=== PATIENT | female | born 1965 | race Caucasian/White ===

== ENCOUNTER 2021-06-17 07:56 | Outpatient (CLI) | payer OTHER, SELFPAY ==
[2021-06-17 19:25] LABS: Basophils Percent Auto 0.6 % (0.2-1.2); Eosinophils Absolute Auto 0.1 K/mm3 (0-0.3); Eosinophils Percent Auto 2.4 % (0-4.4); Hematocrit 44.1 % (37.0-47.0); Hemoglobin 14.1 g/dL (12.0-15.0); Lymphocytes Absolute Auto 1.33 K/mm3 (0.9-3.2); Lymphocytes Percent Auto 28.4 % (18.3-44.2); Mean Corpuscular Hemoglobin 31.4 pg (26-34); Mean Corpuscular Volume 98.2 fl (80-100); Mean Platelet Volume 10.5 fl (7.4-10.4); Monocytes Absolute Auto 0.6 K/mm3 (0.1-0.6); Monocytes Percent Auto 12.2 % (2.6-8.5); Neutrophils Absolute Auto 2.6 K/mm3 (1.3-6.7); Neutrophils Percent Auto 56.4 % (45.5-73.1); Platelet Count Result 267 k/mm3 (150-375); Red Blood Count 4.49 M/mm3 (4.2-5.4); Red Cell Distribution Width 12.2 % (11.5-14.5); White Blood Count 4.7 K/mm3 (4.5-10.0)
[2021-06-17 19:37] LABS: Add Urine Microscopic? YES; Appearance Urine Clear (Clear); Bilirubin Urine Negative (Negative); Blood Urine Negative (Negative); Color Urine Amber (Yellow); Glucose Urine UA Negative (Negative); Ketones Urine Negative (Negative); Leukocyte Esterase Ur 2+ LEU/UL (NEGATIVE); Mucus Urine Few /lpf; Nitrate Urine Positive (Negative); Protein Urine Negative (Negative); RBC Urine 0-2 /hpf (0-2); Specific Grav Ur 1.011 (1.001-1.035); Squamous Epithelial Cell Urine Rare /hpf (Few); WBC Urine 31-50 /hpf (0-3)
[2021-06-17 21:07] LABS: Alanine Aminotransferase 19 U/L (4-35); Alkaline Phosphatase 73 U/L (38-126); Anion Gap 8 mmol/L (8-16); Aspartate Amino Transferase 28 U/L (14-36); Bilirubin,Total 0.9 mg/dL (0.2-1.3); Blood Urea Nitrogen 16 mg/dL (7-17); Carbon Dioxide 29 mmol/L (22-30); Chloride 101 mmol/L (98-107); Cholesterol 189 mg/dL (0-200); Estimated Glomerular Filt Rate > 60; Glucose 94 mg/dL (65-110); HDL Direct 90 mg/dL; Potassium 4.3 mmol/L (3.4-5.0); Sodium 138 mmol/L (137-145); Triglycerides 53 mg/dL (<150)
[2021-06-17 21:18] LABS: LDL Cholesterol Direct 82 mg/dL
== END 2021-06-17 07:57 | disposition home or self-care (01) ==
LOC: ANHBWCLAB 07:59
PROVIDERS: PCP Family Medicine; Visit Provider Family Medicine
DX: N39.0 Urinary tract infection, site not specified (principal); M85.89 Other specified disorders of bone density and structure, multiple sites; Z00.00 Encounter for general adult medical examination without abnormal findings
CPT/HCPCS: 36415; 80053; 80061; 81001; 85025; 87077; 87086; 87186

== ENCOUNTER 2021-12-30 16:56 | Outpatient (CLI) | payer OTHER, SELFPAY ==
--- NOTE | ~2021-12-30 | DEXA_ITS ---
Bone Density Report Name: ANSLEY LI Age: 56 Sex: Female Ethnicity: White Date of : 1965 Indication: postmenopausal; screening for osteoporosis; Referring Provider: JOHN FERNANDO Study: Bone densitometry was performed. Exam Date: December 30, 2021 Accession number: [id number] Bone Density: Region BMD T-score Z-score Classification AP Spine(L1-L4) 0.739 -2.8 -1.5 Osteoporosis Femoral Neck (Left) 0.568 -2.5 -1.3 Osteoporosis Total Hip (Left) 0.680 -2.1 -1.3 Osteopenia Femoral Neck (Right) 0.597 -2.3 -1.1 Osteopenia Total Hip (Right) 0.722 -1.8 -1.0 Osteopenia Total Hip Mean 0.701 -2.0 -1.2 Osteopenia World Health Organization criteria for BMD impression classify patients as: Normal (T-score at or above -1.0), Osteopenia (T-score between -1.0 and -2.5), or Osteoporosis (T-score at or below -2.5). 10-year Fracture Risk: FRAX not reported because: Some T-score for Spine Total or Hip Total or Femoral Neck at or below -2.5 Clinical Information Provided by Patient: Patient maximum height was 62 Menopause Age: 40 No regular weight bearing exercise Drinks caffeinated beverages Onset of menses at age 10 Number of children 1 Impression: The patient has osteoporosis, based on the Total Spine T-score. Discussion: INCREASED RISK OF FRACTURE. BONE DENSITY IS UNDESIRABLY LOW AT ONE OR MORE SKELETAL SITES, CONSISTENT WITH POSTMENOPAUSAL OSTEOPOROSIS. This patient's lowest T-score meets the World Health Organization's (WHO) criteria for osteoporosis at one or more sites (T-score -2.5 or below). In untreated patients, the risk of osteoporotic fracture increases approximately two-fold for each 1.0 SD decrease in T-score. Low bone density is not the only risk factor for fracture; also consider factors such as patient's age, frailty or poor health, risk of falling, risk of injury, previous osteoporotic fracture, family history of osteoporosis, cigarette smoking, low body weight, etc. Not everyone with low bone mineral density has osteoporosis; osteomalacia and other metabolic bone disorders should also be considered. Patients who have osteoporosis should be evaluated for specific diseases and conditions (secondary causes) that may cause or contribute to bone loss. The [place] [employer] Endocrinologists (AACE) and National Osteoporosis Foundation (NOF) recommend pharmacologic intervention for all postmenopausal women whose T-score is in this range. The patient should follow a healthful lifestyle (good nutrition with adequate calcium and vitamin D, and appropriate weight-bearing exercise). Follow-Up: Consider a repeat BMD and Vertebral Fracture Assessment (VFA) exam in 2 years or sooner if medically necessary, to reassess this patient's status. Reported by: GÓMEZ on 12/30/2021 5:27:00
== END 2021-12-30 16:57 | disposition home or self-care (01) ==
PROVIDERS: PCP Family Medicine; Visit Provider Family Medicine
DX: Z78.0 Asymptomatic menopausal state (principal); M81.0 Age-related osteoporosis without current pathological fracture; M85.852 Other specified disorders of bone density and structure, left thigh; M85.851 Other specified disorders of bone density and structure, right thigh
CPT/HCPCS: 77080

== ENCOUNTER 2025-03-31 11:56 | Outpatient (CLI) | payer OTHER, SELFPAY ==
--- NOTE | ~2025-03-31 | XR_ITS ---
XR lumbar spine 2-3V 03/31/2025 12:08 Indication: Low back pain. No known injury. Procedure: 3 views lumbar spine Comparison: No prior studies for comparison. Findings: There is disc narrowing at L4-5 with grade 1 spondylolisthesis secondary to facet hypertrop hy. There is disc narrowing at L5-S1. No acute fracture or traumatic malalignment. Mild dextrocurvatu re of the lumbar spine. Sacral foramen are symmetric. Impression: 1: Moderate lumbar spondylosis with degenerative grade 1 spondylolisthesis at L4-5. Reviewed, dictated and finalized at location A. Impression: 1: Moderate lumbar spondylosis with degenerative grade 1 spondylolisthesis at L 4-5.
--- NOTE | ~2025-03-31 | XR_ITS ---
XR hip LT min 2V 03/31/2025 12:08 Indication: Left hip pain Procedure: 2 views left hip Comparison: No prior studies for comparison. Findings: No fracture, subluxation or dislocation. No significant soft tissue abnormality. No foreign bodies. Impression: 1: No significant bone or joint abnormality. Reviewed, dictated and finalized at location B. Impression: 1: No significant bone or joint abnormality.
--- OUTSIDE RECORDS SUMMARY | 2025-03-31 12:03 | XMS_ITS | Continuity of Care Document ---
Author Organization [facility] Address [address] [place] [address] [address] [place] [address] Phone Care Team Providers Care Paint Mixer Hand Name Role Phone Ej Orr MD Unavailable Unavailable Advance Directives Directive Yes / No Effective Date File Name No Information Encounters Encounter Description Practice Location Reason(s) For Visit Diagnoses Date Provider Providers Copied on Encounter [facility], [address] [place], [place], [id number], [place] tel:[phone] [place] Professional No Information [address] [facility] [place], [place], [place], [id number], [place]. tel:[phone] Family History Family Member Type Diagnosis Age At Onset No Information Payers Payer name Insurance type Covered alliance party ID Authoriza tion(s) [facility] Commercial CI [id number] Social History Type Description Quantity Date Captured Comments Sex Female Smoking Status No Information Chief Complaint And Reason For Visit No Information Reason For Referral Reason For Referral No Information History Of Present Illness Encounter Date Complaint History Of Prese nt Illness No Information Functional Status Date Functional Assessmen t No Information Instructions Date Instruction Additional Infor mation No Information Assessments Type Assessment Date No Information Patient Care Teams Name Effective Dates (start - stop) Status Members No Information
== END 2025-03-31 11:57 | disposition home or self-care (01) ==
LOC: ANHBWCIMG 11:57
PROVIDERS: PCP Nurse Practitioner Adult Health; Visit Provider Nurse Practitioner Adult Health
DX: M79.605 Pain in left leg (principal)
CPT/HCPCS: 72100; 73502

== ENCOUNTER 2025-06-16 11:30 | Outpatient (CLI) | payer OTHER, SELFPAY ==
--- OUTSIDE RECORDS SUMMARY | 2025-06-16 12:55 | XMS_ITS | Clinical Summary ---
Author Organization [facility] Address [address] [place] [address] Care Team Providers Care Weekend Anchor Name Role Phone Jonny Summers MD, Maximino Little Primary Care Provi jessie Unavailable Source Comments [facility],non-owned Affiliates and Associated Physician Practices is amultiple site organization consisting of ambulatory clinics and hospital sitesin [place], [place], [place] and [place]. This disclosure is being madepursuant to the Care Everywhere program and may not contain all information available regarding this patient. Last updated 18.[facility] Allergies Active Allergy Reactions Criticality Noted Date Comments Doxycycline Nausea and/or Vomiting 08/16/2019 Medications * Be aware that medications may not be up to date on this document. Alwaysverify current medications with the patient. Probiotic Product (PROBIOTIC DAILY PO) Active benzonatate (TESSALON) 200 MG capsule Take 1 capsule by mouth 3 times daily as needed for Cough 30 capsule 08/14/2019 Active ondansetron (ZOFRAN) 4 MG tablet Take 1 tablet by mouth every 8 hours as needed for Nausea/Vomit ing 15 tablet 08/16/2019 Active Active Problems No known active problems Social History Tobacco Use Types Packs/Day Years Used Date Smoking Tobacco: Never Smokeless Tobacco: Never Tobacco Cessation:Counseling Given: Yes Comments No Sex and Gender Information Value Date Recorded Sex Assigned at Not on file Legal Sex Female 11:07 AM CDT Gender Identity Not on file Sexual Orientation Not on file Last Filed Vital Signs Vital Sign Reading Time Taken Comments Blood Pressure 138/80 08/14/2019 12:33 PM MANAGEMENT CONSULTING Pulse 72 08/14/2019 12:33 PM MANAGEMENT CONSULTING Temperature 36.5 C (97.7 F) 08/14/2019 12:33 PM MANAGEMENT CONSULTING Respiratory Rate 18 08/14/2019 12:33 PM MANAGEMENT CONSULTING Oxygen Saturation 98% 08/14/2019 12:33 PM MANAGEMENT CONSULTING Inhaled Oxygen Concentration - - Weight 50.8 kg (112 lb) 08/14/2019 12:33 PM MANAGEMENT CONSULTING Height 157.5 cm (5' 2) 08/14/2019 12:33 PM MANAGEMENT CONSULTING Body Mass Index 20.49 08/14/2019 12:33 PM MANAGEMENT CONSULTING Plan of Treatment Health Maintenance Due Date Last Done Comments COLOGUARD (AGES 45-75) - COL ON CA SCREENING 1965 COLON MONITORING 1965 COLONOSCOPY - COLON CA SCREENING 1965 CT COLONOGRAPHY - COLON CA SCREENING 1965 Colorectal Cancer Screening 1965 FIT - COLON CA SCREENING 1965 FLEX SIG - COLON CA SCREENING 1965 LIPID TESTING 1965 MAMMOGRAM 1965 HIV SCREENING 1978 HEPATITIS C SCREENING 10/18/1981 DTAP/TDAP/TD VACCINES (1 - Tdap) 1982 PAP with HPV 1993 PNEUMOCOCCAL VACCINE 50+ (1 of 1 - PCV) 2013 ZOSTER VACCINE (1 of 2) 2013 DEPRESSION SCREENING 09/04/2024 COVID-19 VACCINE (1 - 2023-2 5 season) 2025 INFLUENZA VACCINE (#1) 2025 Respiratory Syncytial Virus (RSV) Vaccine Pt: or over 60 yrs (1 - 1-dose 75+ series) 2038 HEPATITIS B VACCINE Aged Out No longe r eligible based on patient's age to complete this topic HIB VACCINE Aged Out No longer eligi ble based on patient's age to complete this topic HPV VACCINE Aged Out No longer eligi ble based on patient's age to complete this topic MENINGOCOCCAL (Group B) VACC INE SHARED DECISION-MAKING Aged Out No longer eligibl e based on patient's age to complete this topic MENINGOCOCCAL GROUPS A/C/Y/W VACCINE Aged Out No longer eligible b ased on patient's age to complete this topic Insurance [facility] Care Teams Weekend Anchor Relationship Specialty Start Date End Date Maximino Fuller Jr., MD PCP - General Internal Medicine 02/18/17
--- OUTSIDE RECORDS SUMMARY | 2025-06-16 12:55 | XMS_ITS | Clinical Summary ---
Author Organization [facility] Address [address] [place] [address] Phone Care Team Providers Care Produce Manager Name Role Phone Homer Bai MD Primary Care Provider [phone] Allergies Active Allergy Reactions Criticality Noted Date Comments Penicillins Rash 02/18/2017 Medications ofloxacin (OCUFLOX) 0.3 % SolutionIndicat ions:Chronic reactive otitis externa of left ear 4 drops in the left ear twice daily for one week 10 mL 9 Active Additional Information Patient not taking.Reported on 12/29/2023 Active Problems No known active problems Family History Medical History Relation Name Comments Cancer Father Prostate and no [place]odgins lymphoma Heart Disease Father Hypertension Father Hypertension Mother Relation Name Status Comments Father Alive Mother Alive Social History Tobacco Use Types Packs/Day Years Used Date Smoking Tobacco: Never Smokeless Tobacco: Never Tobacco Cessation:Counseling Given: Not Answered Alcohol Use Standard Drinks/Week Comments No 0 (1 standard drink = 0.6 oz pur e alcohol) Comments No Sex and Gender Information Value Date Recorded Sex Assigned at Not on file Legal Sex Female 11:25 PM CDT Gender Identity Not on file Sexual Orientation Not on file Last Filed Vital Signs Vital Sign Reading Time Taken Comments Blood Pressure 152/95 01/08/2024 10:06 AM CDT Pulse 67 01/08/2024 10:06 AM CDT Temperature 36.3 C (97.3 F) 01/08/2024 10:06 AM CDT Respiratory Rate 16 01/08/2024 10:06 AM CDT Oxygen Saturation 99% 01/08/2024 10:06 AM CDT Inhaled Oxygen Concentration - - Weight 63.5 kg (140 lb) 12/29/2023 3:08 PM CDT Height 157.5 cm (5' 2) 12/29/2023 3:08 PM CDT Body Mass Index 25.61 12/29/2023 3:08 PM CDT Plan of Treatment Health Maintenance Due Date Last Done Comments Hepatitis C Virus (HCV) Screening 1965 TdaP Immunization 1965 Pap Smear 1984 Cervical Cancer Screening (CCS) 1993 HPV/Cotest 1993 Cologuard 2008 Colonoscopy 2008 Colorectal Cancer Screening 2008 Immunochemical Fecal Occult Blood 2008 Pneumococcal Immunization (50+ years) (1 of 1 - PCV) 2013 Zoster Immunization (1 of 2) 2013 Mammogram 04/28/2024 04/28/2023, 02/02, 11/15/2019, Additional history exists Influenza Immunization (#1) 2025 08/13/2019 SARS-COV-2 Immunization ( season) 2025 08/12/2021, 12/24/2020, 11/30/2020 Respiratory Syncytial Virus (RSV) Immunization (Adult) (1 - 1-dose 75+ series) 2038 Hepatitis B Immunization Aged Out No longer eligible based on patient's age to complete this topic Human Papillomavirus (HPV) Immunization Aged Out No longer eligible based on patient's age to complete this topic Meningococcal Immunization (ACWY) Aged Out No longer eligible based on patient's age to complete this topic Rotavirus Immunization Aged Out No lo nger eligible based on patient's age to complete this topic Medical Devices Implanted Type Area Hot Wort Settler Device Identifier Shelf Expiration Date Model / Serial / Lot Right Lens Implanted:Qty: 1 on 01/08/2024 by Daisha Celaya MD PhD at [facility] Right: Eye [employer] 03/16/2026 [id number] / [id number] / [id number] Procedures Procedure Name Priority Date/Time Associated Diagnosis Comments VENKATA SCREENING BILATERAL DIGI RUTHIE W CAD Routine 12/09/2015 from Last 3 Months or Most Recently Relevant to Health Maintenance Results * VENKATA SCREENING BILATERAL DIGITAL W CAD (12/09/2015) Anatomical Region Laterality Modality breast Bilateral Other Manjinder Chaves MD IMG MAMMO ORDERABLES Final Result from Last 3 Months or Most Recently Relevant to Health Maintenance [place] [address] [place] [id number] * Guarantor: LITA RODRIGUEZ Account Type Relation to Patient Date of Phone Billing Address Personal/Family Self Care Teams Produce Manager Relationship Specialty Start Date End Date Homer aBi MD PCP - General Family Medicine 01/01/24
--- OUTSIDE RECORDS SUMMARY | 2025-06-16 12:55 | XMS_ITS | Clinical Summary ---
Author Organization [address] Address [address] [place] [address] Care Team Providers Care Coin Machine Collector Supervisor Name Role Phone Homer Bai MD Primary Care Provider [phone] Allergies Active Allergy Reactions Criticality Noted Date Comments Penicillins Rash Medium 02/18/2017 Penicillins Hives Medium 04/19/2019 Medications multivitamin capsule Take 1 capsule by mouth daily Active ibandronate (BONIVA) 150 mg tablet Take 1 tablet (150 mg total) by mouth every 30 (thirty) days Take in AM with glass of water prior to food, don't lie down for 30 minutes. 1 tablet 11 3 Active Additional Information Patient not taking.Reported on 03/13/2025 nitrofurantoin monohydrate (MACROBID) 100 mg capsuleIndicati ons:Acute cystitis with hematuria Take 1 capsule (100 mg total) by mouth 2 (two) times a day for 5 days 10 capsule 5 06/05/20 25 Active Problems Problem Noted Date Diagnosed Date Hearing loss 01/18/2014 Overview (12/08/2016): Hearing loss Encounters Date Type Department Care Team Description 06/02/2025 Results Follow-Up [facility] [address] [place] [id number] Tia Jain, BLUEPRINTING AND PHOTOCOPY SUPERVISOR Urine culture Urine, clean voided 05/31/2025 2:37 PM CDT - 05/31/2025 11:59 PM [place] [address] Acute cystitis with hematuria Discharge Disposition: Discharge to home or self care 05/31/2025 9:30 AM CDT Office Visit [facility] [address] [place] [address] Marti Jefferson NP Acute cystitis with hematuria (Primary Dx) from Last 3 Months Surgical History Surgery Date Site/Laterality Comments OTHER SURGICAL HISTORY hearing loss at : surgeries OTHER SURGICAL HISTORY : TONSILLECTOMY tonsillectomy Medical History Medical History Date Comments Hx Other Medical hearing loss at ; Comments: From to Present Hx Other Medical ; Outc ome: 40 week 8 lb(s) 9 oz Male Hx Other Medical 2011 Osteopenia Chronic constipation Family History Medical History Relation Name Comments Cancer Father cancer; Heart disease Father Heart disease; Hyperlipidemia Father Hyperlipidemi a; Hypertension Father Hypertension; Other Father gallbladder/sto mach; Breast cancer Father's Sister Cancer, cali ast; Kidney disease Mother Renal disease ; Other Mother gallbladder; Ovarian cancer Neg Hx Thyroid cancer Neg Hx Relation Name Status Comments Father Father's Sister Mother Social History Tobacco Use Types Packs/Day Years Used Date Smoking Tobacco: Never Passive Smoke Exposure: Never Smokeless Tobacco: Never Tobacco Cessation:Counseling Given: Not Answered Alcohol Use Standard Drinks/Week Comments Yes 0 (1 standard drink = 0.6 oz pur e alcohol) PHQ-2 Answer Date Recorded PHQ-2 Total Score (If total score is 3 or more points, staff should administer the PHQ-9) 0 12/15/2022 Comments No Sex and Gender Information Value Date Recorded Sex Assigned at Not on file Legal Sex Female 4:46 PM THERAPY SITE COORDINATOR Gender Identity Female 12/14/2022 8:56 AM CDT Sexual Orientation Not on file Obstetrics History Para Term AB IAB SAB Ectopic Multiple Livin g Live Births 1 1 1 0 0 0 0 0 0 1 1 Date Outcome GA Total Labor Labor/2nd/3rd Weight Sex Type Anes PTL Cailin A1 A5 Name Clin Term Vag-Spo nt Last Filed Vital Signs Vital Sign Reading Time Taken Comments Blood Pressure 140/98 05/31/2025 9:42 AM CDT Pulse 77 05/31/2025 9:42 AM CDT Temperature 36.9 C (98.4 F) 05/31/2025 9:42 AM CDT Respiratory Rate 16 05/31/2025 9:42 AM CDT Oxygen Saturation 96% 05/31/2025 9:42 AM CDT Inhaled Oxygen Concentration - - Weight 63 kg (139 lb) 05/31/2025 9:42 AM CDT Height 157.5 cm (5' 2) 05/31/2025 9:42 AM CDT Body Mass Index 25.42 05/31/2025 9:42 AM CDT Plan of Treatment Health Maintenance Due Date Last Done Comments Hepatitis C Screening 1965 DTaP/Tdap/Td Vaccine (1 - Tdap) 1974 Hepatitis B Screening 1981 Zoster Vaccine (1 of 2) 2013 Depression Screening 12/16/2023 12/15/2022, 12/09/2021, 12/04/2020 Regular Well Visit/Exam 18-64 12/16/2023 12/15/2022, 12/09/2021, 12/04/2020 Cervical Cancer Screening 09/07/20242023, 12/15/2022, 12/09/2021, Additional history exists Influenza Vaccine (#1) 2025 08/13/2019 Breast Cancer Screening-Mammogram 08/05/2025 08/05/2024, 04/28/2023, 02/15/2021, Additional history exists Colon Cancer Screening-Colonoscopy 10/02/2027 10/02/2017 Colon Cancer Screening-CT Colonography Discontinued 10/02/2017 Colon Cancer Screening-DNA Stool Discontinued 10/02/2017 Colon Cancer Screening-FIT Discontinued 10/02/2017 Colon Cancer Screening-Sigmoidoscopy Discontinued 10/02/2017 Pneumococcal vaccine <65 Aged Out No longer eligible based on patient's age to complete this topic Procedures Procedure Name Priority Date/Time Associated Diagnosis Comments URINE CULTURE Routine 05/31/2025 2:37 PM CDT Acute cystitis with hematuria POCT URINALYSIS DIPSTICK Routine 05/31/2025 9:47 AM CDT Acute cystitis with hematuria SCREENING MAMMOGRAM BILATERAL W BISHOP Schedule Routine, Read Routine (OP Routine) 08/05/2024 8:29 AM THERAPY SITE COORDINATOR Screening mammogram, encounter for PAP AND HPV, REFLEX TO HPV GENOTYPES Routine 09/07/2023 9:43 AM THERAPY SITE COORDINATOR Hx of abnormal cervical Pap smear Pap smear abnormality of cervix/human papillomavirus (HPV) positive COLONOSCOPY 10/02/2017 9:59 AM THERAPY SITE COORDINATOR from Last 3 Months or Most Recently Relevant to Health Maintenance Results * Urine culture Urine, clean voided (05/31/2025 2:37 PM CDT) Report Final Report: Less than 100,000 colonies/mL (clinically insignificant growth based on current clinical standards) Comment:Testing performed by : [facility], [address] [place] [address]., [id number] Organism (CLINICALLY INSIGNIFICANT GROWTH MILES Urine, clean voided 05/31/2025 2:37 PM CDT 05/31/2025 6:20 PM CDT Narrative [facility] - 06/02/2025 6:44 AM CDT Testing performed by [facility] ([phone]) us Marti Jefferson NP LAB MICROBIOLOGY - GENERAL OR DERABLES Final Result [facility] [address] [place] [address] * (ABNORMAL) POCT urinalysis dipstick (05/31/2025 9:47 AM CDT) Color, Urine, POC Correll Clarity, ur, POC Clear Clear Glucose, ur, POC 100.(A) Negative Bilirubin, ur, POC Negative Negative Ketones, ur, POC Negative Negative Specific Kyle, POC 1.010 1.003 - 1.030 Blood, ur, POC Large(A) Negative pH, ur, POC 6.5 5.0 - 8.0 Protein, ur, POC 100.(A) Negative Urobilinogen, urine, POC 1.0 0.2 - 1.0 mg/dL Nitrite, ur, POC Positive(A) Negative Leukocytes, ur, POC Moderate(A) Negative Lot Number [id number] Urine 05/31/2025 9:47 AM CDT Marti Jefferson BLUEPRINTING AND PHOTOCOPY SUPERVISOR POINT OF CARE TEST ORDERABLES Final Result * Screening Mammogram Bilateral W Bishop (08/05/2024 8:29 AM THERAPY SITE COORDINATOR) Anatomical Region Laterality Modality Breast Bilateral Mammography 08/05/2024 8:57 AM THERAPY SITE COORDINATOR Impressions 08/05/2024 8:57 AM THERAPY SITE COORDINATOR No evidence of malignancy in either breast. FINAL ASSESSMENT: BI-RADS Category 1: Negative. RECOMMENDATION: Recommend return for annual screening mammogram in 12 months. Electronically signed by: Hans Melchor M.D. Narrative 08/05/2024 8:57 AM THERAPY SITE COORDINATOR EXAMINATION: BILATERAL SCREENING MAMMOGRAM COMPARISON: 04/28/2023, 02/15/2022, 11/15/2019 TECHNIQUE: Full-field 2D and digital breast tomosynthesis (DBT) images were obtained. CAD was utilized. BREAST PARENCHYMAL COMPOSITION: The breasts are heterogenously dense, which may obscure small masses. FINDINGS: There is no suspicious mass, calcification, or distortion in either breast. There has been no significant interval change. Self Screening Mammogram IMG MAMMO PROCEDURES Fi nal Result * Pap and HPV, reflex to HPV Genotypes (09/07/2023 9:43 AM THERAPY SITE COORDINATOR) Clinical indication Comment [facility] - 01 Comment: NEGATIVE FOR INTRAEPITHELIAL LESION OR MALIGNANCY. CELLULAR CHANGES ASSOCIATED WITH ATROPHY ARE PRESENT. THIS SPECIMEN WAS RESCREENED PART OF OUR FORENSIC INVESTIGATOR PROGRAM. Specimen adequacy: Comment [facility] - 01 Comment: Satisfactory for evaluation. Endocervical and/or squamous metaplastic cells (endocervical component) are present. Clinician provided ICD10 Comment [facility] - 01 Comment: R87.618 Z87.42 Performed by Comment [facility] - 01 Comment:Deepika Johnson, Cyto technologist (ASCP) QC reviewed by Comment [facility] - 01 Comment:Penny Everett, Cyto technologist . . [facility] - 01 Note: Comment [facility] - 01 Comment: The Pap smear is a screening test designed to aid in the detection of premalignant and malignant conditions of the uterine cervix. It is not a diagnostic procedure and should not be used as the sole means of detecting cervical cancer. Both false-positive and false-negative reports do occur. Test methodology Comment [facility] - 01 Comment: This liquid based ThinPrep(R) pap test was screened with the use of an image guided system. HPV Aptima Negative Negative [facility] 02 Comment: This nucleic acid amplification test detects fourteen high-risk HPV types (16,18,31,33,35,39,45,51,52,56,58,59,66,68) without differentiation. HPV Genotype Reflex Comment [facility] - 01 Comment:Criteria not met, HP V Genotype not performed. Thin prep 09/07/2023 9:43 AM THERAPY SITE COORDINATOR 09/07/2023 Narrative [facility] - 09/10/2023 11:08 AM THERAPY SITE COORDINATOR Performed at: - [facility] [id number] Printing Roller Polisher: Snow Wu MD, Phone: [phone] Performed at: - [address] [id number] Printing Roller Polisher: Snow Wu MD, Phone: [phone] Specimen Comment: No. of containers..01 ThinPrep Vial Terrie Johnston NP LAB CYTOLOGY ORDERABLES Fin al Result [facility] - 01 [facility] 02 * COLONOSCOPY (10/02/2017 9:59 AM THERAPY SITE COORDINATOR) Anatomical Region Laterality Modality Other Narrative Procedure Note Garrett Rivera MD - 10/02/2017 9:59 AM CST [facility] Patient Name: Ansley Huerta Procedure Date: 10/02/2017 9:59 AM Date of : 1965 Admit Type: Outpatient Age: 51 Gender: Female Attending MD: Garrett Rivera M.D. Room: [facility] Note Status: Finalized Procedure: Colonoscopy Indications: Screening for colorectal malignant neoplasm Referring MD: Maximino Fuller M.D. Providers: Garrett Rivera M.D. Impression: - Internal hemorrhoids that prolapse with straining, but require manual replacement into the anal canal (Grade III) found on digital rectal exam. - The entire examined colon is normal. - No specimens collected. Recommendation: - Discharge patient to home. - Resume previous diet indefinitely. - Continue present medications. Medicines: Sedation Administered by an AnesthesiaProfessional Complications: No immediate complications. Estimated Blood Loss: Estimated blood loss: none. Procedure: The benefits, risks and alternatives of theprocedure and sedation were discussed and informed consent was obtained. All questions were answered. Please referto the signed informed consent document in the medical record. The scope was passed under direct vision.The Colonoscope [id number] was introducedthrough the anus and advanced to the the cecum, identifiedby appendiceal orifice and ileocecal valve. The colonoscopy was extremely difficult due tosignificant looping. The patient tolerated the procedure well.The quality of the bowel preparation was good. Findings: The digital rectal exam findings include internal hemorrhoids that prolapse with straining, but require manual replacement into the anal canal (Grade III). The colon (entire examined portion) appeared normal. Electronically signed by Garrett Rivera M.D. Garrett Rivera M.D. 10/02/2017 10:38:27 AM Number of Addenda: 0 Note Initiated On: 10/02/2017 9:59 AM Procedure Code(s): --- Professional --- G0121, Colorectal cancer screening; colonoscopy on individual not meeting criteria for high risk Diagnosis Code(s): --- Professional --- K64.2, Third degree hemorrhoids Z12.11, Encounter for screening for malignant neoplasm of colon CPT copyright 2014 [employer] [place] [employer]. All rights reserved. The codes documented in this report are preliminary and upon site planner reviewmay be revised to meet current compliance requirements. Recognized by the [employer] [place] [employer] for promoting quality in endoscopy Garrett Rivera MD ENDOSCOPY PROCEDURES Final Re sult from Last 3 Months or Most Recently Relevant to Health Maintenance Insurance [facility] PLUS [facility]US [facility] Advance Directives For more information, please contact: [phone] * Full Code (Latest Code Status on File) Date Activated Date Inactivated Comments 10/02/2017 8:57 AM 10/02/2017 2:01 PM Care Teams Coin Machine Collector Supervisor Relationship Specialty Start Date End Date Homer Bai MD PCP - General Family Practice 10/09/23
[2025-06-16 19:42] LABS: Add Urine Microscopic? YES; Appearance Urine Cloudy (Clear); Glucose Urine UA Negative (Negative); Leukocyte Esterase Ur 3+ LEU/UL (Negative); Nitrate Urine Positive (Negative); Non Pathogenic Casts 0-2; Specific Grav Ur 1.019 (1.001-1.035)
== END 2025-06-16 11:31 | disposition home or self-care (01) ==
LOC: ANHBWCLAB 11:34
PROVIDERS: PCP Nurse Practitioner Adult Health; Visit Provider Nurse Practitioner Adult Health
DX: R39.9 Unspecified symptoms and signs involving the genitourinary system (principal)
CPT/HCPCS: 81001; 87077; 87086; 87186